=== PATIENT | male | born 1990 | race Hispanic/Latino ===

== ENCOUNTER 2016-07-13 13:49 | Emergency (ER) | payer OTHER ==
[~2016-07-13] VITALS: Ht 180.3 cm; Wt 68.0 kg
--- NOTE | 2016-07-13 16:17 | ED HEADACHE COMPLAINT ---
History of Present Illness General Chief Complaint: Headache Stated Complaint: HEADACHES ON/OFF X 1 WEEK Source: patient, family Exam Limitations: no limitations Vital Signs & Intake/Output Vital Signs & Intake/Output Vital Signs Date Time Temp Pulse Resp B/P Pulse O2 O2 Flow FiO2 Ox Delivery Rate 07/13 1555 97.9 84 18 127/69 99 Room Air 07/13 1358 97.4 70 20 123/81 97 Room Air ED Intake and Output 07/14 0000 07/13 1200 Intake Total 0 Output Total Balance 0 Intake, Oral 0 Patient 150 lb Weight Allergies Coded Allergies: No Known Allergies (07/13/16) Reconcile Medications Sumatriptan Succinate (Imitrex) 50 MG TABLET 1 TAB PO EVERY 8 HOURS PRN Cluster Headaches Triage Note: TRIAGE: PT TO ER C/C INTERMITTENT HEADACHES X 1 WEEK. PAIN FREE AT TRIAGE. STATES "IT SETTLED DOWN" ON THE WAY HERE. STATES "WHEN I GET THE HEADACHE IT'S ALMOST LIKE I HAVE A PANIC ATTACK AND I CAN'T BREATHE. THE PAIN IS ON THE RT SIDE AND WHEN IT'S THERE IT'S LIKE A 9 OUT OF 10." Triage Nurses Notes Reviewed? yes HPI: 25 yo M presenting with headaches. Intermittent right sided retro-orbital headaches for the past week, occur 2-3x per day, last 30-45 mins at a time, severe lancating sharp pain (significant enough to cause patient to be dounled over in pain), non-radiating, self-resolves. Intermittent tearing or right eye, right eye conjunctival injection, right nostril rhinorrhea, and right facial parasthesias with headaches. Similar headaches for 1 month at in July of last year. Denies fevers, chills, neck/pain stiffness, visual changes, weakness, gait instability. Severe headache at home prior to coming to ED, resolved in route, absent currently. (NICOLAS HUTCHINSON,JULIÁN) Past History Travel History Traveled to [place] past 21 day No Medical History Any Pertinent Medical History? 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 No (JULIÁN VALENZUELA MD) Review of Systems Review of Systems Constitutional: Reports: no symptoms. Eyes: Reports: drainage, photophobia. Ears, Nose, Throat, Mouth: Reports: no symptoms. Respiratory: Reports: no symptoms. Cardiovascular: Reports: no symptoms. Gastrointestinal/Abdominal: Reports: no symptoms. Genitourinary: Reports: no symptoms. Musculoskeletal: Reports: no symptoms. Skin: Reports: no symptoms. Neurological/Psychological: Reports: headache, paresthesia. Hematologic/Endocrine: Reports: no symptoms. Endocrine: Reports: no symptoms. Immunologic/Allergic: Reports: no symptoms. All Other Systems: Reviewed and Negative (JULIÁN VALENZUELA MD) Physical Exam Physical Exam General Appearance: well developed/nourished, no apparent distress, alert, awake Head: atraumatic, normal appearance Eyes: Bilateral: normal appearance, PERRL, EOMI. Ears, Nose, Throat: normal pharynx, normal ENT inspection Neck: normal inspection, supple, full range of motion Respiratory: normal breath sounds, no respiratory distress, lungs clear Cardiovascular: regular rate/rhythm, normal peripheral pulses Back: normal inspection Extremities: normal inspection Cranial Nerves: See below Comments: Neurologic Exam: Deaf in right ear (baseline per patient), otherwise Cr II-XII intact, visual grier intact, no pronator drift, motor strength 5/5 throughout, no sensory deficits, no dysmetria with [id number] and heel to mendoza testing Core Measures Severe Sepsis Present: No Septic Shock Present: No (JULIÁN VALENZUELA MD) Progress Differential Diagnosis: cluster FREEMAN, meningitis, migraine FREEMAN, subarach. Hem., tension FREEMAN Plan of Care: Physician MDM: 25 yo M presenting with episodic severe right sided headaches, similar FREEMAN 1 year ago. VSS, neurologic exam non-focal. DDx: Cluster FREEMAN, less likely migraine, tension FREEMAN, low concern for menigitis, ICH. Given patient asymptomatic currently, no ED interventions neccessary. Patient given neurologist hotel reservationist for follow up, trial of sumatriptan for recurrent headaches pending neurology evaluation. D/[facility] with return precautions and teaching about sumatriptan dosing, plan for neuro follow-up. D/W Dr. Pablo. (JULIÁN VALENZUELA MD) Departure Departure Disposition: HOME OR SELF CARE Condition: Stable Clinical Impression Primary Impression: Cluster headaches Qualifiers: Headache chronicity pattern: episodic headache Intractability: not intractable Qualified Code: G44.019 - Episodic cluster headache, not intractable Referrals: SHMUEL LANDRUM MD Additional Instructions: Take tylenol or ibuprofen as needed pain. Try sumatriptan for severe headache pain. Follow up with Dr. Landrum (Neurology). Return to the ED for any new, worsening, or concerning symptoms. Departure Forms: Customer Survey General Discharge Information Prescriptions: Current Visit Scripts Sumatriptan Succinate (Imitrex) 1 TAB PO EVERY 8 HOURS PRN #10 TAB (NICOLAS HUTCHINSON,JULIÁN) Resident Co-Sign Statement Statement: ED Attending supervision documentation- [X] I saw and evaluated the patient. I have also reviewed all the pertinent lab results and diagnostic results. I agree with the findings and the plan of care as documented in the Resident's documentation. [X] I have reviewed the ED Record and agree with the Resident's documentation. [] Additions or exceptions (if any) to the Resident's note and plan are summarized below: [] (COREY HUTCHINSON,MIRTHA)
[2016-07-13] MEDS ORDERED: IMITREX50 M1 PO (16:57)
== END 2016-07-13 17:10 ==
LOC: ERH 13:49
DX: G44.009 Cluster headache syndrome, unspecified, not intractable (principal)